=== PATIENT | female | born 1970 | race Caucasian/White ===

== ENCOUNTER → 2017-10-26 | Outpatient (CLI) | payer OTHER ==
--- NOTE | 2017-10-29 10:19 | MM ---
Reason for exam: screening (asymptomatic). History: Reductions of both breasts, 2007. Physical Findings: A clinical breast exam by your physician is recommended on an annual basis and results should be correlated with mammographic findings. MG Screening Mammo w CAD Bilateral CC and MLO view(s) were taken. No prior studies available for comparison. The breast tissue is heterogeneously dense. This may lower the sensitivity of mammography. There is chronic nodularity bilaterally. There is no discrete abnormality. ASSESSMENT: Benign, BI-RAD 2 RECOMMENDATION: Routine screening mammogram of both breasts in 1 year.
== END | disposition home or self-care (01) ==
LOC: RADMAMWWP 14:41
PROVIDERS: ATTEND Family Medicine
DX: Z12.31 Encounter for screening mammogram for malignant neoplasm of breast (principal)
CPT/HCPCS: 77067

== ENCOUNTER → 2020-12-20 | Outpatient (CLI) | payer BC ==
--- NOTE | 2020-12-20 19:32 | CT ---
EXAMINATION TYPE: CT abdomen pelvis w con DATE OF EXAM: 12/20/2020 COMPARISON: None available. HISTORY: RLQ pain x3 weeks CT DLP: 1033.4 mGycm Automated exposure control for dose reduction was used. TECHNIQUE: Helical acquisition of images was performed from the lung bases through the pelvis. CONTRAST: Performed with Oral Contrast and with IV Contrast, patient injected with 100 mL of Isovue 300. FINDINGS: LUNG BASES: No significant abnormality is appreciated. LIVER/GB: No significant abnormality is appreciated. PANCREAS: No significant abnormality is seen. SPLEEN: No significant abnormality is seen. ADRENALS: No significant abnormality is seen. KIDNEYS: No significant abnormality is seen. FREE AIR: No free air is visualized. RETROPERITONEAL ADENOPATHY: None visualized REPRODUCTIVE ORGANS: No significant abnormality is seen URINARY BLADDER: No significant abnormality is seen. PELVIC ADENOPATHY: None visualized. OSSEOUS STRUCTURES: No significant abnormality is seen. BOWEL: No significant abnormality is seen. No acute appendicitis. OTHER: Mildly lobulated and enlarged uterus. IMPRESSION: LOBULATED UTERUS, MAY REPRESENT FIBROID. CONSIDER ULTRASOUND CORRELATION. OTHERWISE NO ACUTE ABNORMALITY.
== END | disposition home or self-care (01) ==
LOC: RADCTMAIN 14:29
PROVIDERS: ATTEND Physician Assistant Medical
DX: N85.8 Other specified noninflammatory disorders of uterus (principal)
CPT/HCPCS: 74177; Q9967

== ENCOUNTER → 2021-02-03 | Outpatient (CLI) | payer BC ==
--- NOTE | 2021-02-04 11:53 | MM ---
Reason for exam: screening (asymptomatic). Last mammogram was performed 3 years and 3 months ago. History: Patient is postmenopausal. Reductions of both breasts, 2007. Took hormonal contraceptives for 20 years beginning at age 14. Physical Findings: A clinical breast exam by your physician is recommended on an annual basis and results should be correlated with mammographic findings. MG Screening Mammo w CAD Bilateral CC and MLO view(s) were taken. Prior study comparison: October 26, 2017, bilateral MG screening mammo w CAD. There are scattered fibroglandular densities. Focal asymmetry right breast 6mm anterior and 10mm anterior slight outer quadrant. ASSESSMENT: Incomplete: need additional imaging evaluation, BI-RAD 0 RECOMMENDATION: Special view mammogram of the right breast. If lesion persists on supplemental views, image directed ultrasound is recommended. [facility] will attempt to contact patient to return for supplemental views and ultrasound if indicated.
== END | disposition home or self-care (01) ==
LOC: RADMAMWWP 07:26
PROVIDERS: ATTEND Family Medicine
DX: Z12.31 Encounter for screening mammogram for malignant neoplasm of breast (principal); Z78.0 Asymptomatic menopausal state
CPT/HCPCS: 77067

== ENCOUNTER → 2021-02-16 | Outpatient (CLI) | payer BC ==
--- NOTE | 2021-02-16 11:56 | MM ---
Reason for exam: additional evaluation requested from abnormal screening. Last mammogram was performed less than 1 month ago. History: Patient is postmenopausal. Reductions of both breasts, 2007. Took hormonal contraceptives for 20 years beginning at age 14. Physical Findings: Nurse did not find any significant physical abnormalities on exam. MG Work Up Mamm w CAD RT Spot compression CC, spot compression MLO, and LM view(s) were taken of the right breast. Prior study comparison: February 03, 2021, bilateral MG screening mammo w CAD. October 26, 2017, bilateral MG screening mammo w CAD. Finding: There is a 5 mm mass in the central position of the right breast. These results were verbally communicated with the patient and result sheet given to the patient on 02/16/21. ASSESSMENT: Incomplete: need additional imaging evaluation, BI-RAD 0 RECOMMENDATION: Ultrasound of the right breast.
--- NOTE | 2021-02-16 11:58 | USB ---
Reason for exam: additional evaluation requested from abnormal screening. History: Patient is postmenopausal. Reductions of both breasts, 2007. Took hormonal contraceptives for 20 years beginning at age 14. US Breast Workup Limited RT Right limited breast ultrasound including focal area of concern, retroareolar and axilla demonstrates a 0.3 x 0.3 x 0.2cm oval, irregular, cystic lesion at 10 o'clock and a 0.6 x 0.6 x 0.3cm oval, irregular, cystic lesion at 8 o'clock. These results were verbally communicated with the patient and result sheet given to the patient on 02/16/21. ASSESSMENT: Probably benign, BI-RAD 3 RECOMMENDATION: Follow-up diagnostic mammogram and ultrasound of the right breast in 6 months.
== END | disposition home or self-care (01) ==
LOC: RADMAMWWP 09:51
PROVIDERS: ATTEND Family Medicine
DX: N60.01 Solitary cyst of right breast (principal); N63.15 Unspecified lump in the right breast, overlapping quadrants; Z78.0 Asymptomatic menopausal state
CPT/HCPCS: 77065

== ENCOUNTER → 2022-03-13 | Outpatient (CLI) | payer BC ==
--- NOTE | 2022-03-13 08:56 | MM ---
Reason for Exam: Additional evaluation requested from prior study. Last mammogram was performed 1 year(s) and 1 month(s) ago. Patient History: Menarche at age 12. First Full-Term at age 19. Postmenopausal. Hormonal Contraceptives for 20 years from age 14 until age 34. 2007, Bilateral Reduction. Risk Values: Amanda 5 year model risk: 1.0%. NCI Lifetime model risk: 7.7%. Prior Study Comparison: 10/26/2017 Bilateral Screening Mammogram, [facility]. 02/03/2021 Bilateral Screening Mammogram, [facility]. 02/16/2021 Right Diagnostic Mammogram, [facility]. 02/16/2021 Right Diagnostic Ultrasound, [facility]. Tissue Density: There are scattered fibroglandular densities. Findings: Analyzed By CAD. Stable small circumscribed round mass throughout the bilateral breasts. No enlarging masses or new group of microcalcification. Overall Assessment: Benign, BI-RAD 2 Management: Screening Mammogram of both breasts in 1 year. A clinical breast exam by your physician is recommended on an annual basis and results should be correlated with mammographic findings. This exam should not preclude additional follow-up of suspicious palpable abnormalities. Results were given to the patient verbally at the time of exam. Electronically signed and approved by: Nathaniel Almodovar M.D.
--- NOTE | 2022-03-13 09:23 | USB ---
Reason for Exam: Follow-up at short interval from prior study. Patient History: Menarche at age 12. First Full-Term at age 19. Postmenopausal. Hormonal Contraceptives for 20 years from age 14 until age 34. 2007, Bilateral Reduction. Risk Values: Amanda 5 year model risk: 1.0%. NCI Lifetime model risk: 7.7%. Technique: Method: Targeted. Prior Study Comparison: 10/26/2017 Bilateral Screening Mammogram, [facility]. 02/03/2021 Bilateral Screening Mammogram, [facility]. 02/16/2021 Right Diagnostic Mammogram, [facility]. Findings: The upper outer quadrant of the right breast, the axilla of the right breast and the retroareolar of the right breast were scanned. Targeted right breast ultrasound redemonstrates at 8:00 position 4 cm distance from nipple a 5 x 2 x 4 mm elongated anechoic lesion too small to further characterize favoring thin-walled cyst not significantly changed from prior. At 10:00 position 1 cm distance from nipple there is a 3 x 2 mm hypoechoic anechoic round lesion redemonstrated too small to further characterize favored benign not significantly changed from prior. No significant new solid or cystic masses are present. Overall Assessment: Benign, BI-RAD 2 Management: Screening Mammogram of both breasts in 1 year. Return to routine follow-up. Results were given to the patient verbally at the time of exam. Electronically signed and approved by: Nathaniel Almodovar M.D.
== END | disposition home or self-care (01) ==
LOC: RADMAMWWP 08:25
PROVIDERS: ATTEND Family Medicine
DX: R92.8 Other abnormal and inconclusive findings on diagnostic imaging of breast (principal); Z78.0 Asymptomatic menopausal state
CPT/HCPCS: 77062; 77066

== ENCOUNTER → 2023-08-27 | Outpatient (CLI) | payer BC ==
--- NOTE | 2023-08-28 08:02 | MM ---
Reason for Exam: Screening (asymptomatic). Last mammogram was performed 1 year(s) and 5 month(s) ago. Patient History: Menarche at age 12. First Full-Term at age 19. Postmenopausal. Hormonal Contraceptives for 20 years from age 14 until age 34. 2007, Bilateral Reduction. Risk Values: Amanda 5 year model risk: 1.0%. NCI Lifetime model risk: 7.5%. Prior Study Comparison: 02/03/2021 Bilateral Screening Mammogram, [facility]. 02/16/2021 Right Diagnostic Mammogram, [facility]. 03/13/2022 Bilateral MG 3D diag mammo w/cad [facility], [facility]. Tissue Density: There are scattered areas of fibroglandular density. Findings: Analyzed By CAD. Chronic bilateral nodularity. There is no suspicious group of microcalcifications or new suspicious mass in either breast. Overall Assessment: Benign, BI-RAD 2 Management: Screening Mammogram of both breasts in 1 year. . Patient should continue monthly self-breast exams. A clinical breast exam by your physician is recommended on an annual basis. This exam should not preclude additional follow-up of suspicious palpable abnormalities. Note on Amanda scores and lifetime risk: 1. A Amanda score greater than 3% is considered moderate risk. If this is the case, consider specialist referral to assess eligibility for a risk reducing agent. 2. If overall lifetime risk for the development of breast cancer is 20% or higher, the patient may qualify for future screening with alternating mammogram and breast MRI. Electronically signed and approved by: Dev Gee M.D. Radiologist
== END | disposition home or self-care (01) ==
LOC: RADMAMWWP 07:43
PROVIDERS: ATTEND Family Medicine
DX: Z12.31 Encounter for screening mammogram for malignant neoplasm of breast (principal); Z78.0 Asymptomatic menopausal state
CPT/HCPCS: 77067